=== PATIENT | male | born 1960 | race Hispanic/Latino ===

== ENCOUNTER 2020-08-25 17:47 | Emergency (ER) | payer OTHER ==
[2020-08-25 18:58] LABS: Absolute Lymphocytes (CBC) 1.4 K/uL (0.7-4.9); Basophils % 0.2 % (0-1.3); Hematocrit 42.9 % (39.6-49.0); Lymphocytes % 12.7 % (15.3-44.8); MPV 8.9 fL (7.6-11.3); RBC Red Blood Cell Count 4.48 M/uL (4.33-5.43)
[2020-08-25] MEDS ORDERED: NA CHLORIDE 0.9% 1,000 ML ONE (19:08)
[2020-08-25 19:12] LABS: ALT/SGPT 37 U/L (12-78); AST/SGOT 13 U/L (15-37); Albumin 3.8 g/dL (3.4-5.0); Alkaline Phosphatase 85 U/L (45-117); BUN Blood Urea Nitrogen 17 mg/dL (7-18); Bicarbonate 27 mmol/L (21-32); Bilirubin Direct 0.1 mg/dL (0-0.2); Bilirubin Total 0.4 mg/dL (0.2-1.0); Glucose Level 374 mg/dL (74-106); Lipase 140 U/L (73-393); Potassium 4.2 mmol/L (3.5-5.1); Protein, Total 8.8 g/dL (6.4-8.2); Sodium Level 140 mmol/L (136-145)
[2020-08-25 21:15] LABS: Urine Blood Negative (Negative); Urine Glucose 3+ (Negative); Urine Protein Negative (Negative)
[2020-08-25 21:44] LABS: SARS-COV-2 RT PCR NEGATIVE (NEGATIVE)
--- NOTE | 2020-08-25 22:36 | EDPHYS ---
Physician Documentation [facility] Name: Mani Galeana Age: 60 yrs Sex: Male : 1960 Arrival Date: 08/25/2020 Time: 17:50 Bed 14 Private MD: AAYUSH Physician Toby Pollack HPI: 08/25 19:00 This 60 yrs old Male presents to ER via Ambulatory with complaints of pm1 Nausea/Vomiting. 19:00 The patient presents to the emergency department with nausea, vomiting, diarrhea. pm1 Onset: The symptoms/episode began/occurred today, 1 hour after drinking coffee with milk. Possible causes: bad food exposure, milk. The symptoms are aggravated by nothing. The symptoms are alleviated by nothing. Associated signs and symptoms: Pertinent negatives: abdominal pain, dysuria, fever, chest pain, shortness of breath. Severity of symptoms: in the emergency department the symptoms are unchanged. The patient has not experienced similar symptoms in the past. The patient has been recently seen by a physician: covid vaccine 4 days ago. Historical: - Allergies: 18:00 No Known Allergies; aa5 - Home Meds: 18:00 Metformin Oral [Active]; Glipizide Oral [Active]; aa5 - PMHx: 18:00 Diabetes - NIDDM; aa5 - PSHx: 18:00 None; aa5 - Immunization history:: Client reports receiving the 2nd dose of the Covid vaccine, Client reports receiving the 1st dose of the Covid vaccine. - Social history:: Smoking status: Patient denies any tobacco usage or history of. ROS: 19:00 Constitutional: Negative for fever, chills, and weight loss, Neck: Negative for injury, pm1 pain, and swelling, Cardiovascular: Negative for chest pain, palpitations, and edema, Respiratory: Negative for shortness of breath, cough, wheezing, and pleuritic chest pain. 19:00 Back: Negative for injury and pain, : Negative for injury, bleeding, discharge, and swelling, MS/Extremity: Negative for injury and deformity, Skin: Negative for injury, rash, and discoloration, Neuro: Negative for headache, weakness, numbness, tingling, and seizure. 19:00 Abdomen/GI: Positive for nausea, vomiting, and diarrhea, Negative for abdominal pain. Exam: 19:00 Constitutional: This is a well developed, well nourished patient who is awake, alert, pm1 and in no acute distress. Head/Face: Normocephalic, atraumatic. 19:00 Cardiovascular: Regular rate and rhythm with a normal S1 and S2. No gallops, murmurs, or rubs. Normal PMI, no JVD. No pulse deficits. Respiratory: Lungs have equal breath sounds bilaterally, clear to auscultation and percussion. No rales, rhonchi or wheezes noted. No increased work of breathing, no retractions or nasal flaring. Skin: Warm, dry with normal turgor. Normal color with no rashes, no lesions, and no evidence of cellulitis. MS/ Extremity: Pulses equal, no cyanosis. Neurovascular intact. Full, normal range of motion. 19:00 Abdomen/GI: Exam negative for acute changes, Inspection: abdomen appears normal, Palpation: abdomen is soft and non-tender, in all quadrants. 19:00 Neuro: Exam negative for acute changes, Orientation: is normal, Mentation: is normal, Motor: is normal, moves all fours. Vital Signs: 17:57 BP 141 / 65; Pulse 67; Resp 16 S; Temp 97.5(TE); Pulse Ox 98% on R/A; Weight 77.11 kg aa5 (R); Height 5 ft. 5 in. (165.10 cm) (R); Pain 0/10; 19:10 BP 130 / 72; Pulse 68; Resp 18 S; Pulse Ox 92% on R/A; ca1 20:05 BP 127 / 81; Pulse 74; Resp 18 S; Pulse Ox 98% on R/A; ca1 20:53 BP 130 / 80; Pulse 66; Resp 17 S; Pulse Ox 96% on R/A; ca1 21:45 BP 122 / 67; Pulse 66; Resp 18 S; Pulse Ox 95% on R/A; ca1 23:28 BP 115 / 67; Pulse 65; Resp 19; Pulse Ox 99% ; rr5 17:57 Body Mass Index 28.29 (77.11 kg, 165.10 cm) aa5 MDM: 19:19 Patient medically screened. pm1 22:35 Data reviewed: vital signs. Data interpreted: Pulse oximetry: on room air is 95 %. pm1 Interpretation: normal. Counseling: I had a detailed discussion with the patient and/or guardian regarding: the historical points, exam findings, and any diagnostic results supporting the discharge/admit diagnosis, lab results, the need for outpatient follow up, to return to the emergency department if symptoms worsen or persist or if there are any questions or concerns that arise at home. 08/25 18:30 Order name: Basic Metabolic Panel; Complete Time: 19:15 ky2 08/25 18:30 Order name: CBC with Diff; Complete Time: 19:15 ky2 08/25 18:30 Order name: Hepatic Function; Complete Time: 19:15 ma2 08/25 18:30 Order name: Lipase; Complete Time: 19:15 ma2 08/25 18:36 Order name: Glucose, Ancillary Testing; Complete Time: 19:15 EDMS 08/25 19:18 Order name: Strep; Complete Time: 21:19 pm1 08/25 21:12 Order name: Throat Culture EDAL 08/25 21:15 Order name: Urine Dipstick-Ancillary EDAL 08/25 21:15 Order name: Urine Dipstick-Ancillary; Complete Time: 21:19 EDMS 08/25 21:45 Order name: COVID-19/FLU A+B; Complete Time: 21:58 EDMS 08/25 18:30 Order name: IV Saline Lock; Complete Time: 18:49 ma2 08/25 18:30 Order name: Labs collected and sent; Complete Time: 18:49 ky2 08/25 18:30 Order name: Urine Dipstick-Ancillary (obtain specimen); Complete Time: 21:14 ky2 08/25 19:18 Order name: Droplet/Contact Precautions; Complete Time: 19:29 pm1 08/25 19:18 Order name: O2 Per Protocol; Complete Time: 19:29 pm1 Administered Medications: 18:55 Drug: NS 0.9% 1000 ml Route: IV; Rate: 125 ml/hr; Site: right antecubital; ca1 23:28 Follow up: Response: No adverse reaction; IV Status: Completed infusion; IV Intake: rr5 1000ml 19:29 Drug: Zofran (Ondansetron) 4 mg Route: IVP; Site: right antecubital; ca1 21:15 Follow up: Response: No adverse reaction; Nausea is decreased ca1 22:56 Drug: Zofran (Ondansetron) 4 mg Route: IVP; Site: right antecubital; rr5 23:27 Follow up: Response: No adverse reaction rr5 Point of Care Testing: Blood Glucose: 18:01 Blood Glucose: 357 mg/dL; aa5 Ranges: Critical Glucose Levels:Adult <50 mg/dl or >400 mg/dl <40 mg/dl or >180 mg/dl Disposition: 08/25/20 22:36 Discharged to Home. Impression: Nausea and vomiting, Diarrhea, unspecified. - Condition is Stable. - Discharge Instructions: Food Choices to Help Relieve Diarrhea, Adult, Diarrhea, Adult, Food Poisoning, Nausea and Vomiting, Adult. - Prescriptions for Zofran ODT 4 mg Oral tablet,disintegrating - place 1 tablet by TRANSLINGUAL route every 8 hours As needed; 20 tablet. - Medication Reconciliation Form, Thank You Letter, Antibiotic Education, Prescription Opioid Use form. - Follow up: Emergency Department; When: As needed; Reason: Worsening of condition. Follow up: Private Physician; When: 2 - 3 days; Reason: Recheck today's complaints, Continuance of care, Re-evaluation by your physician. - Problem is new. - Symptoms have improved. Addendum: 08/29/2020 19:09 Co-signature as Attending Physician, Toby Pollack MD. m a2 Signatures: Dispatcher [employer] EDAL Ricarda Cramer RN RN aa5 Vinny Joya NP FIELD MARKETING ASSOCIATE pm1 Toby Pollack MD MD ma2 Weston Olivares RN RN rr5 Asiya Peres RN RN ca1 Corrections: (The following items were deleted from the chart) 08/25 20:45 19:19 CORONAVIRUS+MR.LAB.BRZ ordered. EDAL EDMS 20:45 19:19 Influenza Screen (A \T\ B)+BA.LAB.BRZ ordered. EDAL EDMS 23:30 22:36 08/25/2020 22:36 Discharged to Home. Impression: Nausea and vomiting; Diarrhea, rr5 unspecified. Condition is Stable. Forms are Medication Reconciliation Form, Thank You Letter, Antibiotic Education, Prescription Opioid Use. Follow up: Emergency Department; When: As needed; Reason: Worsening of condition. Follow up: Private Physician; When: 2 - 3 days; Reason: Recheck today's complaints, Continuance of care, Re-evaluation by your physician. Problem is new. Symptoms have improved. pm1
--- NOTE | 2020-08-25 22:36 | ER ---
Nurse's Notes [facility] Name: Mani Galeana Age: 60 yrs Sex: Male : 1960 Arrival Date: 08/25/2020 Time: 17:50 Bed 14 Private MD: Diagnosis: Nausea and vomiting;Diarrhea, unspecified Presentation: 08/25 17:57 Chief complaint: Patient states: "I was doing fine this morning and around lunch time I aa5 started feeling bad, dizzy, and started vomiting". Pt also reports diarrhea. Pt also reports he got the 2nd COVID-19 vaccine 4 days ago. Coronavirus screen: nausea, vomiting. Ebola Screen: Patient negative for fever greater than or equal to 101.5 degrees Fahrenheit, and additional compatible Ebola Virus Disease symptoms. Initial Sepsis Screen: Does the patient meet any 2 criteria? No. Patient's initial sepsis screen is negative. Does the patient have a suspected source of infection? No. Patient's initial sepsis screen is negative. Risk Assessment: Do you want to hurt yourself or someone else? Patient reports no desire to harm self or others. Onset of symptoms was August 25, 2020. 17:57 Acuity: MARY JANE 3 aa5 17:57 Method Of Arrival: Ambulatory aa5 Historical: - Allergies: 18:00 No Known Allergies; aa5 - Home Meds: 18:00 Metformin Oral [Active]; Glipizide Oral [Active]; aa5 - PMHx: 18:00 Diabetes - NIDDM; aa5 - PSHx: 18:00 None; aa5 - Immunization history:: Client reports receiving the 2nd dose of the Covid vaccine, Client reports receiving the 1st dose of the Covid vaccine. - Social history:: Smoking status: Patient denies any tobacco usage or history of. Screenin:15 Abuse screen: Denies threats or abuse. Denies injuries from another. Nutritional ca1 screening: No deficits noted. Tuberculosis screening: No symptoms or risk factors identified. Fall Risk IV access (20 points). Assessment: 18:15 General: Appears in no apparent distress. comfortable, Behavior is calm, cooperative, ca1 appropriate for age. Pain: Denies pain. Neuro: Level of Consciousness is awake, alert, obeys commands, Oriented to person, place, time, situation. Cardiovascular: Heart tones S1 S2 present Capillary refill < 3 seconds Patient's skin is warm and dry. Respiratory: Airway is patent Respiratory effort is even, unlabored, Respiratory pattern is regular, symmetrical, Breath sounds are clear bilaterally. GI: Abdomen is flat, non-distended, Bowel sounds present X 4 quads. Abd is soft and non tender X 4 quads. Reports diarrhea, nausea, vomiting. : No signs and/or symptoms were reported regarding the genitourinary system. EENT: No signs and/or symptoms were reported regarding the EENT system. Derm: Skin is intact, is healthy with good turgor, Skin is pink, warm \\T\\ dry. Musculoskeletal: Circulation, motion, and sensation intact. Capillary refill < 3 seconds. 19:10 Reassessment: Patient appears in no apparent distress at this time. Patient and/or ca1 family updated on plan of care and expected duration. Pain level reassessed. Patient is alert, oriented x 3, equal unlabored respirations, skin warm/dry/pink. 20:06 Reassessment: Patient appears in no apparent distress at this time. Patient and/or ca1 family updated on plan of care and expected duration. Pain level reassessed. Patient is alert, oriented x 3, equal unlabored respirations, skin warm/dry/pink. 20:53 Reassessment: Patient appears in no apparent distress at this time. Patient and/or ca1 family updated on plan of care and expected duration. Pain level reassessed. Patient is alert, oriented x 3, equal unlabored respirations, skin warm/dry/pink. 21:45 Reassessment: Patient appears in no apparent distress at this time. Patient and/or ca1 family updated on plan of care and expected duration. Pain level reassessed. Patient is alert, oriented x 3, equal unlabored respirations, skin warm/dry/pink. 23:28 Reassessment: Patient appears in no apparent distress at this time. Patient is alert, rr5 oriented x 3, equal unlabored respirations, skin warm/dry/pink. discharge instruction given and explained without complaints made Patient states symptoms have improved. Vital Signs: 17:57 BP 141 / 65; Pulse 67; Resp 16 S; Temp 97.5(TE); Pulse Ox 98% on R/A; Weight 77.11 kg aa5 (R); Height 5 ft. 5 in. (165.10 cm) (R); Pain 0/10; 19:10 BP 130 / 72; Pulse 68; Resp 18 S; Pulse Ox 92% on R/A; ca1 20:05 BP 127 / 81; Pulse 74; Resp 18 S; Pulse Ox 98% on R/A; ca1 20:53 BP 130 / 80; Pulse 66; Resp 17 S; Pulse Ox 96% on R/A; ca1 21:45 BP 122 / 67; Pulse 66; Resp 18 S; Pulse Ox 95% on R/A; ca1 23:28 BP 115 / 67; Pulse 65; Resp 19; Pulse Ox 99% ; rr5 17:57 Body Mass Index 28.29 (77.11 kg, 165.10 cm) aa5 ED Course: 17:50 Patient arrived in ED. ds1 17:57 Arm band placed on. aa5 17:59 Triage completed. aa5 18:10 Asiya Peres, RN is Primary Nurse. ca1 18:15 Patient has correct armband on for positive identification. Bed in low position. Call ca1 light in reach. Side rails up X2. Pulse ox on. NIBP on. Warm blanket given. 18:47 Vinny Joya NP is PHCP. pm1 18:47 Toby Pollack MD is Attending Physician. pm1 18:49 Inserted saline lock: 20 gauge in left antecubital area, using aseptic technique. Blood dh4 collected. 23:29 No provider procedures requiring assistance completed. IV discontinued, intact, rr5 bleeding controlled, No redness/swelling at site. Pressure dressing applied. Administered Medications: 18:55 Drug: NS 0.9% 1000 ml Route: IV; Rate: 125 ml/hr; Site: right antecubital; ca1 23:28 Follow up: Response: No adverse reaction; IV Status: Completed infusion; IV Intake: rr5 1000ml 19:29 Drug: Zofran (Ondansetron) 4 mg Route: IVP; Site: right antecubital; ca1 21:15 Follow up: Response: No adverse reaction; Nausea is decreased ca1 22:56 Drug: Zofran (Ondansetron) 4 mg Route: IVP; Site: right antecubital; rr5 23:27 Follow up: Response: No adverse reaction rr5 Point of Care Testing: Blood Glucose: 18:01 Blood Glucose: 357 mg/dL; aa5 Ranges: Intake: 23:28 IV: 1000ml; Total: 1000ml. rr5 Outcome: 22:36 Discharge ordered by . pm1 23:29 Discharged to home ambulatory. rr5 23:29 Condition: stable 23:29 Discharge instructions given to patient, Instructed on discharge instructions, follow up and referral plans. medication usage, Demonstrated understanding of instructions, follow-up care, medications, Prescriptions given X 1. 23:30 Patient left the ED. rr5 Signatures: Alexandra Pop ds1 Ricarda Cramer, RN RN aa5 Vinny Joya, ADRIANNE CREAMERY WORKER pm1 Weston Olivares RN RN rr5 Asiya Peres RN RN ca1 [facility]
[2020-08-25] MEDS ORDERED: ONDANSETRON 4 MG/2 ML VIAL ONE (23:12)
[2020-08-25 23:37] VITALS: TEMP 97.5
[2020-08-25 23:44] VITALS: BP 115/67; O2SAT 99
== END 2020-08-25 23:30 | disposition home or self-care (01) ==
LOC: ER 17:47
DX: R19.7 Diarrhea, unspecified (principal); E11.9 Type 2 diabetes mellitus without complications; Z20.822 Contact with and (suspected) exposure to COVID-19
CPT/HCPCS: 87070; 85025; 80048; 36415; 82947; 80076; 87081; 81003; 83690; 0240U; J7030; J2405; 96361; 96374; 99284